=== PATIENT | male | born 1970 | race Caucasian/White ===

== ENCOUNTER 2017-06-05 09:40 | Inpatient (IN) | payer BC, OTHER ==
[~2017-06-05] VITALS: Ht 188 cm; Wt 93.9 kg
[2017-06-05] VITALS (18 sets, daily range): BP systolic 120–161; BP diastolic 88–104
[2017-06-05] MEDS ORDERED: ASPIRIN 81 MG CHEW (CHILDREN'S ASA) ONE (09:41)
[2017-06-05] MEDS ORDERED: RX-NITROGLYCERIN 0.4 MG TAB BTL 25'S SL ONE (09:41)
[2017-06-05] MEDS ORDERED: NS IV 1000 ML 1,000 ML ONE ×2 (09:44→10:28)
[2017-06-05] MEDS ORDERED: CLOPIDOGREL 300 MG (PLAVIX) TABLET PO ONE (09:47)
[2017-06-05] MEDS ORDERED: HEParin 1000 UNIT/ML (10ML VIAL) FOR BOLUS ONE ×2 (09:47→12:40)
[2017-06-05] MEDS ORDERED: HEParin DRIP 25000 UNIT/500ML 500 ML IV SCH (09:54)
[2017-06-05] MEDS ORDERED: NS IV 1000 ML 1,000 ML IV SCH ×2 (10:00→11:45)
[2017-06-05] MEDS ORDERED: ASPIRIN 81 MG CHEW (CHILDREN'S ASA) PO ONE (10:00)
[2017-06-05] MEDS ORDERED: meTOprolol 5 MG/5 ML (LOPRESSOR) VIAL IV ONE (10:00)
[2017-06-05] MEDS ORDERED: RX-NITROGLYCERIN 0.4 MG TAB BTL 25'S SL PRN (10:00)
[2017-06-05 10:06] LABS: BASOPHILS # (AUTO) 0.1 10^3/uL (0.0-0.1); BASOPHILS % (AUTO) 1 % (0-10); EOSINOPHILS # (AUTO) 0.2 10^3/uL (0.0-0.3); EOSINOPHILS % (AUTO) 3 % (0-10); LYMPHOCYTES # (AUTO) 1.7 X 10^3 (1.0-4.0); LYMPHOCYTES % (AUTO) 22 % (12-44); MEAN CORPUSCULAR HEMOGLOBIN 31 PG (25-34); MEAN CORPUSCULAR HGB CONC 36 G/DL (32-36); MEAN CORPUSCULAR VOLUME 87 FL (80-99); MEAN PLATELET VOLUME 10.6 FL (7.4-10.4); MONOCYTES # (AUTO) 0.5 X 10^3 (0.0-1.0); MONOCYTES % (AUTO) 7 % (0-12); NEUTROPHILS # (AUTO) 5.2 X 10^3 (1.8-7.8); NEUTROPHILS % (AUTO) 68 % (42-75); PLATELET COUNT 263 10^3/uL (130-400); RED BLOOD COUNT 5.05 10^6/uL (4.35-5.85); RED CELL DISTRIBUTION WIDTH 13.4 % (10.0-14.5); WHITE BLOOD COUNT 7.7 10^3/uL (4.3-11.0)
[2017-06-05 10:13] LABS: INR 0.9 (0.8-1.4); PROTHROMBIN TIME PATIENT 12.3 SEC (12.2-14.7)
[2017-06-05 10:18] LABS: ALANINE AMINOTRANSFERASE 24 U/L (0-55); ALBUMIN 4.5 GM/DL (3.2-4.5); ANION GAP 11 MMOL/L (5-14); ASPARTATE AMINO TRANSFERASE 30 U/L (5-34); BILIRUBIN,TOTAL 1.3 MG/DL (0.1-1.0); BLOOD UREA NITROGEN 12 MG/DL (7-18); BUN/CREATININE RATIO 12; CALCIUM 10.3 MG/DL (8.5-10.1); CARBON DIOXIDE 26 MMOL/L (21-32); CHLORIDE 99 MMOL/L (98-107); CREATININE SERUM 1.03 MG/DL (0.60-1.30); GFR ESTIMATED > 60; GLUCOSE 195 MG/DL (70-105); MAGNESIUM 1.9 MG/DL (1.8-2.4); POTASSIUM 4.3 MMOL/L (3.6-5.0); SODIUM 136 MMOL/L (135-145)
[2017-06-05 10:24] LABS: MYOGLOBIN SERUM 75.7 NG/ML (10.0-92.0)
[2017-06-05] MEDS ORDERED: HEParin (CATH LAB) 2,000 ML IV ONE (10:28)
[2017-06-05] MEDS ORDERED: LISI-552 PO (10:36)
[2017-06-05] MEDS ORDERED: METF1000 PO (10:36)
--- NOTE | 2017-06-05 10:38 | ED Chest Pain ---
General Stated Complaint: CHEST PAIN Source: patient, family Exam Limitations: no limitations History of Present Illness Time seen by provider: 09:50 Initial Comments This 47-year-old diabetic hypertensive male presents with chest pain that began last night. Patient stated this pressure type chest pain which radiated to both shoulders right greater than left was an 8 on a 10 scale last night. This morning the patient's chest pain persisted and is 3/10. Patient was referred acutely from [facility]. The patient has been compliant on his metformin and lisinopril. Patient has had no history of documented cardiac disease. There is a family history of hypertension, diabetes, and heart disease. The patient drinks moderately. He denies nicotine or recreational drugs. The patient has had no associated diaphoresis or nausea with his chest pain. Allergies and Home Medications Allergies Coded Allergies: No Known Drug Allergies (Unverified , 06/05/17) Review of Systems Constitutional: No chills, No fever EENTM: No Double Vision Respiratory: Denies Cough Cardiovascular: See HPI, Chest Pain Gastrointestinal: Denies Abdominal Pain, Denies Nausea Genitourinary: Denies Burning, Denies Discharge Musculoskeletal: No back pain Skin: No change in color, No rash Psychiatric/Neurological: Denies Anxiety, Denies Depressed Endocrine: Denies Excessive Sweating Hematologic/Lymphatic: No Symptoms Reported Past Qyrqnfr-Nfbdiy-Vzzoeo Hx Reviewed Nursing Assessment Reviewed/Agree w Nursing PMH: Yes Physical Exam Vital Signs Capillary Refill : General Appearance: No Apparent Distress, WD/WN HEENT: Normal ENT Inspection Neck: Normal Inspection Respiratory: Lungs Clear Cardiovascular: Regular Rate, Rhythm, No Edema, No Gallop, No JVD, No Murmur Gastrointestinal: Normal Bowel Sounds Extremity: Normal Capillary Refill, Normal Inspection Neurologic/Psychiatric: Alert, Oriented x3, No Motor/Sensory Deficits, Normal Mood/Affect Skin: Normal Color, Warm/Dry Progress/Results/Core Measures Results/Orders My Orders Orders - MALA KAUFFMAN MD Aspirin Chewable Tablet (Baby Aspirin Ch (06/05/17 09:41) Rx-Nitroglycerin Sl Tabs (Rx-Nitrostat S (06/05/17 09:41) Ns Iv 1000 Ml (Sodium Chloride 0.9%) (06/05/17 09:44) Clopidogrel Tablet (Plavix Tablet) (06/05/17 09:47) Heparin (Bolus Per Protocol) (Heparin (B (7/14/17 09:47) Cbc With Automated Diff (06/05/17 09:54) Magnesium (06/05/17 09:54) Chest 1 View, Ap/Pa Only (06/05/17 09:54) Ekg Tracing (06/05/17 09:54) Cardiac Profile 1 (06/05/17 09:54) Comprehensive Metabolic Panel (06/05/17 09:54) Myoglobin Serum (06/05/17 09:54) Protime With Inr (06/05/17 09:54) Partial Thromboplastin Time (06/05/17 09:54) O2 (06/05/17 09:54) Monitor-Rhythm Ecg Trace Only (06/05/17 09:54) Lipid Panel (06/06/17 06:00) Aspirin Chewable Tablet (Baby Aspirin Ch (06/05/17 10:00) Rx-Nitroglycerin Sl Tabs (Rx-Nitrostat S (06/05/17 10:00) Saline Lock/Iv-Start (06/05/17 09:54) Heparin Injection (Heparin Injection) (06/05/17 10:00) Metoprolol Tartrate Injection (Lopressor (06/05/17 10:00) Initiate/Follow Protocol (06/05/17 ) Heparin Drip 25065 Unit/500ml (Heparin (06/05/17 09:54) Ns Iv 1000 Ml (Sodium Chloride 0.9%) (06/05/17 10:00) Progress Note : Time: 10:05 Progress Note The patient's EKG demonstrated ST segment depression in V1 and V2. The patient was in sinus rhythm. No dysrhythmia was noted. Acute treatment consisted of aspirin orally and sublingual nitroglycerin. The patient's 3/10 chest pain abated with the first nitroglycerin. The patient's repeat EKG demonstrated minimal improvement in the ST segment depression in V1 and V2. Patient had a liter of normal saline established. His laboratory results are pending. Patient received 600 mg of Plavix and 5000 units of heparin as a bolus. Patient was placed on a heparin drip per protocol. Dr. Nunez presented to evaluate the patient. Pt admitted to ICU. Departure Communication Time/Spoke to Admitting Phy: 10:[address] Khalid. Impression Impression: Primary Impression: Chest pain Qualified Codes: I20.9 - Angina pectoris, unspecified Disposition: ADMITTED INPATIENT Condition: Improved Decision to Admit Reason: Admit from ER (General) Decision to Admit/Date: Jun 05, 2017 Time/Decision to Admit Time: 10:40 Departure-Patient Inst. Referrals: [facility] (PCP/Family) Primary Care Physician MALA KAUFFMAN MD Jun 05, 2017 10:38
--- NOTE | 2017-06-05 10:40 | Diagnostic Imaging Report ---
EXAMINATION: Portable upright radiograph of the chest. INDICATION: Chest pain. FINDINGS: The lungs are clear. The heart size is normal. There is no effusion or pneumothorax. The mediastinum and cherrie appear unremarkable. IMPRESSION: Unremarkable exam. Dictated by: Dictated on workstation # [id number]
[2017-06-05] MEDS ORDERED: NITROGLYCERIN SUBLINGUAL 0.4 MG TAB (NITROSTAT) SL PRN (11:45)
[2017-06-05] MEDS ORDERED: CATHETER FLUSH 10 ML SYR IV PRN (11:45)
[2017-06-05] MEDS ORDERED: fentaNYL INJECTION 100 MCG/2 ML AMP ONE (11:51)
[2017-06-05] MEDS ORDERED: MIDAZOLAM 5 MG/5 ML (VERSED) VIAL ONE (11:51)
[2017-06-05] MEDS ORDERED: diphenhydrAMINE 50 MG/ML INJ (BENADRYL) ONE (11:52)
[2017-06-05] MEDS ORDERED: VERAPAMIL 5 MG/2 ML (CALAN) VIAL IV ONE (12:34)
[2017-06-05] MEDS ORDERED: NITROGLYCERIN DRIP 25 MG/D5W 250 ML IV ONE (12:34)
--- NOTE | 2017-06-05 14:04 | Cardiac Procedure Note-CS/ASA ---
Pre-Procedure Note Pre-Op Procedure Note H&P Reviewed The H&P was reviewed, patient examined and no changes noted. Date H&P Reviewed: Jun 05, 2017 Time H&P Reviewed: 13:00 Conscious Sedation Pre-Proced Time Reviewed: 13:00 ASA Class: 3 Airway Mallampati Classification: (seldovia appropriate class) I. II. III, IV Lungs Heart ASA score ASA 1: a normal healthy patient ASA 2: a patient with a mild systemic disease (mid diabetes, controlled hypertension, obesity ASA 3: a patient with a severe systemic disease that limits activity (angina , COPD, prior Myocardial infarction) ASA 4: a patient with an incapacitating disease that is a constant threat to life (CHF, renal failure) ASA 5: a moribund patient not expected to survive 24 hrs. (ruptured aneurysm) ASA 6: a declared brain patient whose organs are being harvested. For emergent operations, add the letter E after the classification Grade 1 Sedation Plan: Analgesia, Amnesia, Plan communicated to team members, Discussed options with patient/fam, Discussed risks with patient/fam Note The patient is an appropriate candidate to undergo the planned procedure, sedation, and anesthesia. The patient immediately re-assessed prior to indication. Karyn AMBRIZ MD Jun 05, 2017 2:04 pm
--- NOTE | 2017-06-05 14:04 | History & Physicial-Cardiolgy ---
HPI-Cardiology Cardiology Consultation: Date of Consultation 06/05/17 Date of Admission Attending Physician Karyn Nunez MD Admitting Physician Aliyah,[facility] Consult[facility] Physician Karyn NUNEZ MD HPI: Time Seen by Provider: 10:00 Chief Complaint: chest pain this is a 47-year-old gentleman with history of diabetes. He presents with chest pain since last night. Chest pain was substernal with no significant radiation. When I saw him in the ER he was not having any chest pain. This was due to one sublingual nitroglycerin that was given. He denies having any other cardiac symptoms including shortness of breath, palpitation, syncope or near syncope. The patient denies smoking. Review of Systems-Cardiology Review of Systems Constitutional: No As described under HPI, No no symptoms reported, No chills, No fever, No lightheadedness, No malaise, No tiredness, No weight loss, No weight gain, No other Eyes: No As described under HPI, No no symptoms reported, No blindness, No blurred vision, No contact lenses, No drainage, No decreased acuity, No foreign body sensation, No glasses, No inflammation, No pain, No photophobia, No previous injury, No shadows, No tunnel vision, No other, No vision change Ears/Nose/Throat: No As described under HPI, No no symptoms reported, No chronic hearing loss, No epistaxis, No ear discharge, No ear pain, No loose teeth, No mouth pain, No mouth swelling, No nasal drainage, No nose pain, No recent hearing loss, No throat pain, No throat swelling, No ulcerations, No other Respiratory: No no symptoms reported, No As described under HPI, No cough, No orthopnea, No shortness of breath, No SOB with excertion, No SOB at rest, No stridor, No wheezing, No other Cardiovascular: No no symptoms reported, No As described under HPI, chest pain , No edema, No irregular heart rate, No lightheadedness, No palpitations, No syncope, No other Gastrointestinal: No no symptoms reported, No As described under HPI, No abdomen distended, No abdominal pain, No blood streaked bowels, No constipation , No diarrhea, No difficulty swallowing, No nausea, No poor appetite, No poor fluid intake, No rectal bleeding, No vomiting, No other, No nausea/vomiting/ diarrhea, No stool coloration changes Genitourinary: No no symptoms reported, No As described under HPI, No burning, No dysuria, No discharge, No frequency, No flank pain, No hematuria, No incontinence, No pain, No urgency, No other, No urine frequency changes, No urine coloration changes Musculoskeletal: No no symptoms reported, No As describe under HPI, No back pain, No gout, No joint pain, No joint swelling, No muscle pain, No muscle stiffness, No neck pain, No other Skin: No no symptoms reported, No As described under HPI, No change in color, No change in hair/nails, No dryness, No lesions, No lumps, No rash, No other, No skin related problems, No ulcerations, No rash on exposed areas, No ulcerations on exposed areas Psychiatric/Neurological: No As described under HPI, No anxiety, No depression , No emotional problems, No focal weakness, No headache, No no symptoms reported , No numbness, No other, No pre-existing deficit, No seizure, No syncope, No tingling, No tremors, No weakness Hematologic: No no symptoms reported, No As described under HPI, No anemia, No blood clots, No easy bleeding, No easy bruising, No swollen glands, No other, No bleeding abnormalities MIW-Oqnewr-Kestng Hx Patient Social History Alcohol Use: Occasionally Uses Recreational Drug Use: No Smoking Status: Never a Smoker 2nd Hand Smoke Exposure: No Recent Foreign Travel: No Recent Infectious Disease Expo: No Hospitalization with Isolation: Denies Physical Abuse Screen: No Sexual Abuse: No Past Medical History PMH As described under Assessment. Family Medical History Family History: Hypertension 19 FATHER G8 BROTHER Allergies and Home Medications Allergies Coded Allergies: No Known Drug Allergies (Unverified , 06/05/17) Home Medications Lisinopril 20 Mg Tablet, 20 MG PO DAILY, (Reported) Metformin HCl 1,000 Mg Tablet, 1,000 MG PO BID, (Reported) Physical Exam-Cardiology Physical Exam Vital Signs/I&O Vital Sign - Last 12Hours 06/05/17 06/05/17 06/05/17 06/05/17 09:40 09:40 09:43 11:00 Temp 98.3 98.3 Pulse 91 70 Resp 18 18 B/P (MAP) 167/116 Pulse Ox 99 100 100 O2 Delivery Nasal Cannula Nasal Cannula Nasal Cannula Nasal Cannula O2 Flow Rate 2.0 2.00 2.00 2.00 06/05/17 11:10 Temp 97.6 Pulse 69 Resp 28 B/P (MAP) 161/92 Pulse Ox 97 O2 Delivery Nasal Cannula O2 Flow Rate 2.00 Capillary Refill : Less Than 3 Seconds Constitutional: No appears stated age, No AAO x 3, No apparent distress, No PERRL, No well-developed, No well-nourished, No other HEENT: No PERRL, No normal ENT inspection, No TMs normal, No pharynx normal, No scleral icterus (R), No scleral icterus (L), No pale conjunctivae (R), No pale conjunctivae (L), No photophobia, No TM abnormal (R), No TM abnormal (L), No pharyngeal erythema, No tonsillar exudate, No other, No discharge, No EOMI, No hearing is well preserved, No hard of hearing, No oral hygience is good, No ulceration, No xanthelasmas are seen Neck: No non-tender, No full range of motion, No supple, No normal inspection, No carotid bruit, No limited range of motion, No lymphadenopathy (R), No lymphadenopathy (L), No tender lateral, No tender midline, No thyromegaly, No other, No carotid pulses are 2 + bilaterally, No with good upstrokes Respiratory: chest expansion is symmetric, chest is bilaterally symmetric, lungs clear to percussion, lungs clear to auscultation Cardiovascular: regular rate-rhythm, No irregularly irregular, No extra beats, No parasternal heave is noted, No JVD, No edema, No bradycardia, No tachycardia , No point of maximal impulse, No cardiac thrills are palpable, S1 and S2, No gallop/S3, No gallop/S4, No diastolic murmur, No systolic murmur, No friction rub, No click, No other Gastrointestinal: No tender, No soft, No round, No distended, No pulsatile mass , No organomegaly, No guarding, No rebound, No tenderness, No hernia, No mass, No audible bowel sounds, No abnormal bowel sounds, No abdominal bruits, No spleenomegaly, No other Rectal: deferred Extremities: No normal range of motion, No non-tender, No normal inspection, No pedal edema, No calf tenderness, No normal capillary refill, No pelvis stable , No calf tenderness, No inflammation, No pedal edema, No slow capillary refill , No swelling, No other, No abrasion, No clubbing, No cyanosis, No ecchymosis, No laceration, No no lower extremity edema bilateral, No significant edema, No tenderness, No wound Neurologic/Psychiatric: No spinneret cleaner II-XII nml as tested, No no motor/sensory deficits, No alert, No normal mood/affect, No oriented x 3, No abnormal cerebellar tests, No abnormal spinneret cleaner II-XII, No abnormal gait, No aphasia, No EOM palsy, No facial droop, No motor weakness, No sensory deficit, No depressed affect, No disoriented x 3, No other, No grossly intact, No power is 5/5 both on sides Skin: No normal color, No warm/dry, No cyanosis, No cool, No diaphoresis, No damp, No ecchymosis, No jaundice, No mottled, No pallor, No rash, No tattoos/ piercings, No ulcerations, No rash on exposed areas, No ulcerations on exposed areas, No other Data Review Labs Laboratory Tests 06/05/17 09:44: White Blood Count 7.7, Red Blood Count 5.05, Hemoglobin 15.7, Hematocrit 44, Mean Corpuscular Volume 87, Mean Corpuscular Hemoglobin 31, Mean Corpuscular Hemoglobin Concent 36, Red Cell Distribution Width 13.4, Platelet Count 263, Mean Platelet Volume 10.6H, Neutrophils (%) (Auto) 68, Lymphocytes (%) (Auto) 22 , Monocytes (%) (Auto) 7, Eosinophils (%) (Auto) 3, Basophils (%) (Auto) 1, Neutrophils # (Auto) 5.2, Lymphocytes # (Auto) 1.7, Monocytes # (Auto) 0.5, Eosinophils # (Auto) 0.2, Basophils # (Auto) 0.1, Prothrombin Time 12.3, INR Comment 0.9, Activated Partial Thromboplast Time 27, Sodium Level 136, Potassium Level 4.3, Chloride Level 99, Carbon Dioxide Level 26, Anion Gap 11, Blood Urea Nitrogen 12, Creatinine 1.03, Estimat Glomerular Filtration Rate > 60 , BUN/Creatinine Ratio 12, Glucose Level 195H, Calcium Level 10.3H, Magnesium Level 1.9, Total Bilirubin 1.3H, Aspartate Amino Transf (AST/SGOT) 30, Alanine Aminotransferase (ALT/SGPT) 24, Alkaline Phosphatase 65, Myoglobin 75.7, Troponin I 0.49*H, Total Protein 8.0, Albumin 4.5 ECG Impression ECG Initial ECG Rhythm: Normal Sinus Comment ST depressions noted in lead V1 and V2 A/P-Cardiology Assessment/Admission Diagnosis non-STEMI Plan coronary angiography is recommended. Bolus aspirin, bolus Plavix, IV heparin. Will require beta azrina, high-dose statin and EMMIE inhibitor. Echocardiogram Clinical Quality Measures AMI/AHF: ASA po Prior to arrival: No DVT/VTE Risk/Contraindication: Risk Factor Score Per Nursin RFS Level Per Nursing on Admit: 1=Low/No VTE PPX Karyn NUNEZ MD Jun 05, 2017 2:04 pm
--- NOTE | 2017-06-05 14:08 | Cardiology Post Procedure Note ---
Post-Procedure Note Physician (s)/Loan Secretary (s) Physician Karyn AMBRIZ MD Pre-Procedure Diagnosis Pre-Procedure Diagnosis: non-STEMI Post-Procedure Note Procedure Start Date: Jun 05, 2017 Procedure Start Time: 13:00 Name of Procedure: coronary angiography, left heart catheterization, PCI with drug-eluting stent to OM1 and mid LAD Findings/Procedure Note subtotal occlusion of OM 1. Severe mid LAD stenosis. Moderate RCA stenosis with moderate to severe PL stenosis. Normal LV function with LVEDP 18 mmHg. PCI with drug-eluting stent to OM1. PCI with drug-eluting stent to mid LAD. fluoroscopy dose 1654 mgy Fluoroscopy time 11.8 minutes Anesthesia Type: Conscious Sedation Estimated blood loss (mL): 20 mL Contrast Amount: 280 Post-Procedure Diagnosis Post-operative diagnosis: PCI to OM1 and LAD Karyn AMBRIZ MD Jun 05, 2017 2:08 pm
[2017-06-05] MEDS ORDERED: PATIENT MAY USE OWN MEDS, ALL PO SCH (14:15)
[2017-06-05] MEDS ORDERED: LISI10TA2 PO (14:52)
[2017-06-05] MEDS ORDERED: METF500T8 PO (14:52)
[2017-06-05] MEDS: NS IV 1000 ML 1,000 ML IV SCH (16:25)
[2017-06-05] MEDS ORDERED: ATORVASTATIN 80 MG (LIPITOR) TABLET PO SCH (21:00)
[2017-06-05] MEDS: meTOprolol TARTRATE 25 MG (LOPRESSOR) TABLET PO SCH (21:39)
[2017-06-06] VITALS (12 sets, daily range): BP systolic 97–127; BP diastolic 66–90
[2017-06-06] MEDS ORDERED: ACETAMINOPHEN 500 MG TAB (TYLENOL) PO ONE ×2 (00:15→00:30)
[2017-06-06] MEDS: NS IV 1000 ML 1,000 ML IV SCH ×2 (00:16→02:45)
[2017-06-06 03:50] LABS: BASOPHILS % (AUTO) 0 % (0-10); EOSINOPHILS # (AUTO) 0.2 10^3/uL (0.0-0.3); EOSINOPHILS % (AUTO) 2 % (0-10); LYMPHOCYTES # (AUTO) 2.1 X 10^3 (1.0-4.0); LYMPHOCYTES % (AUTO) 21 % (12-44); MEAN CORPUSCULAR HEMOGLOBIN 32 PG (25-34); MEAN CORPUSCULAR HGB CONC 35 G/DL (32-36); MEAN CORPUSCULAR VOLUME 90 FL (80-99); MEAN PLATELET VOLUME 10.9 FL (7.4-10.4); MONOCYTES # (AUTO) 0.9 X 10^3 (0.0-1.0); MONOCYTES % (AUTO) 8 % (0-12); NEUTROPHILS # (AUTO) 7.1 X 10^3 (1.8-7.8); NEUTROPHILS % (AUTO) 69 % (42-75); PLATELET COUNT 233 10^3/uL (130-400); RED BLOOD COUNT 4.26 10^6/uL (4.35-5.85); RED CELL DISTRIBUTION WIDTH 13.5 % (10.0-14.5); WHITE BLOOD COUNT 10.3 10^3/uL (4.3-11.0)
[2017-06-06 04:08] LABS: CHOLESTEROL 164 MG/DL (< 200); DIRECT LDL 103 MG/DL (1-129); TRIGLYCERIDES 244 MG/DL (<150); VLDL CHOLESTEROL 49 MG/DL (5-40)
[2017-06-06 04:12] LABS: ALANINE AMINOTRANSFERASE 29 U/L (0-55); ALBUMIN 3.6 GM/DL (3.2-4.5); ANION GAP 9 MMOL/L (5-14); ASPARTATE AMINO TRANSFERASE 111 U/L (5-34); BILIRUBIN,TOTAL 0.9 MG/DL (0.1-1.0); BLOOD UREA NITROGEN 11 MG/DL (7-18); BUN/CREATININE RATIO 12; CALCIUM 8.7 MG/DL (8.5-10.1); CARBON DIOXIDE 23 MMOL/L (21-32); CHLORIDE 104 MMOL/L (98-107); CREATININE SERUM 0.95 MG/DL (0.60-1.30); GFR ESTIMATED > 60; GLUCOSE 206 MG/DL (70-105); MAGNESIUM 1.8 MG/DL (1.8-2.4); POTASSIUM 4.2 MMOL/L (3.6-5.0); SODIUM 136 MMOL/L (135-145); TOTAL PROTEIN 6.4 GM/DL (6.4-8.2)
[2017-06-06 04:23] LABS: TROPONIN I 35.22 NG/ML (<0.30)
[2017-06-06] MEDS ORDERED: MAGNESIUM 1 GM/100 ML IVPB 100 ML IV SCH (06:00)
[2017-06-06] MEDS ORDERED: POTASSIUM CL 10MEQ/50ML IVPB 50 ML IV SCH (06:00)
[2017-06-06] MEDS ORDERED: KCL 20 MEQ TAB (K-DUR) PO SCH (06:00)
[2017-06-06] MEDS: meTOprolol TARTRATE 25 MG (LOPRESSOR) TABLET PO SCH (08:34)
[2017-06-06] MEDS ORDERED: ASPIRIN E.C. 81 MG (ECOTRIN) TAB PO SCH (09:00)
[2017-06-06] MEDS ORDERED: lisINopril 5 MG (PRINIVIL) TABLET PO SCH (09:00)
[2017-06-06] MEDS ORDERED: CLOPIDOGREL 75 MG (PLAVIX) TABLET PO SCH (09:00)
--- NOTE | 2017-06-06 10:21 | Diagnostic Imaging Report ---
INDICATION: Chest pain. TECHNIQUE: Single view chest 5:36 AM. CORRELATION STUDY: 06/05/2017 FINDINGS: Heart size and vasculature are somewhat prominent, likely owing to technique. The lungs are clear with no consolidating infiltrate. There is no significant effusion or pneumothorax. IMPRESSION: 1. Borderline heart size and vasculature may be accentuated by technique. Dictated by: Dictated on workstation # [id number]
[2017-06-06] MEDS ORDERED: ENOXAPARIN 100 MG/1 ML (LOVENOX) SYR SC SCH (11:00)
--- NOTE | 2017-06-06 12:15 | Cardiology Progress Note ---
Cardiology SOAP Progress Note Subjective: No further cardiac symptoms Objective: I&O/Vital Signs Vital Sign - Last 12Hours 06/06/17 06/06/17 06/06/17 06/06/17 01:00 01:00 02:00 03:00 Pulse 71 71 73 68 Resp 17 8 12 B/P (MAP) 105/84 97/70 107/75 Pulse Ox 97 94 97 O2 Delivery Room Air Room Air Room Air 06/06/17 06/06/17 06/06/17 06/06/17 04:00 04:00 04:18 05:00 Temp 97.0 Pulse 63 63 Resp 8 18 B/P (MAP) 107/66 107/81 Pulse Ox 9 98 97 O2 Delivery Room Air Room Air Room Air 06/06/17 06/06/17 06/06/17 06/06/17 06:00 07:00 07:00 08:00 Temp 97.4 Pulse 70 75 75 Resp 10 B/P (MAP) 107/82 118/89 Pulse Ox 98 99 O2 Delivery Room Air Room Air 06/06/17 06/06/17 06/06/17 06/06/17 08:00 08:00 09:00 10:00 Pulse 76 76 75 Resp 12 9 20 B/P (MAP) 127/89 117/82 126/88 Pulse Ox 98 99 98 98 O2 Delivery Room Air Room Air Room Air Room Air 06/06/17 11:00 Pulse 79 Resp 14 B/P (MAP) 126/73 Pulse Ox 97 O2 Delivery Room Air Intake and Output 06/06/17 00:00 Intake Total 200 ml Output Total 1000 ml Balance -800 ml Weight (Pounds): 207 Weight (Ounces): 0.0 Weight (Calculated Kilograms): 93.347016 Side: right Groin site without hematoma: Yes Constitutional: No appears stated age, No AAO x 3, No apparent distress, No PERRL, No well-developed, No well-nourished, No other Respiratory: chest expansion is symmetric, chest is bilaterally symmetric, lungs clear to percussion, lungs clear to auscultation Cardiovascular: regular rate-rhythm, No irregularly irregular, No extra beats, No parasternal heave is noted, No JVD, No edema, No bradycardia, No tachycardia , No point of maximal impulse, No cardiac thrills are palpable, S1 and S2, No gallop/S3, No gallop/S4, No diastolic murmur, No systolic murmur, No friction rub, No click, No other Gastrointestional: No tender, No soft, No round, No distended, No pulsatile mass, No organomegaly, No guarding, No rebound, No tenderness, No hernia, No mass, No audible bowel sounds, No abnormal bowel sounds, No abdominal bruits, No spleenomegaly, No other Extremities: No normal range of motion, No non-tender, No normal inspection, No pedal edema, No calf tenderness, No normal capillary refill, No pelvis stable , No calf tenderness, No inflammation, No pedal edema, No slow capillary refill , No swelling, No other, No abrasion, No clubbing, No cyanosis, No ecchymosis, No laceration, No no lower extremity edema bilateral, No significant edema, No tenderness, No wound Neurologic/Psychiatric: No air commodore II-XII nml as tested, No no motor/sensory deficits, No alert, No normal mood/affect, No oriented x 3, No abnormal cerebellar tests, No abnormal air commodore II-XII, No abnormal gait, No aphasia, No EOM palsy, No facial droop, No motor weakness, No sensory deficit, No depressed affect, No disoriented x 3, No other, No grossly intact, No power is 5/5 both on sides Skin: No normal color, No warm/dry, No cyanosis, No cool, No diaphoresis, No damp, No ecchymosis, No jaundice, No mottled, No pallor, No rash, No tattoos/ piercings, No ulcerations, No rash on exposed areas, No ulcerations on exposed areas, No other Results/Procedures: Labs Laboratory Tests 06/05/17 15:45: Troponin I 12.82*H 06/05/17 21:50: Troponin I 32.55*H 06/06/17 03:38: Troponin I 35.22*H, White Blood Count 10.3, Red Blood Count 4.26L, Hemoglobin 13.4, Hematocrit 38L, Mean Corpuscular Volume 90, Mean Corpuscular Hemoglobin 32 , Mean Corpuscular Hemoglobin Concent 35, Red Cell Distribution Width 13.5, Platelet Count 233, Mean Platelet Volume 10.9H, Neutrophils (%) (Auto) 69, Lymphocytes (%) (Auto) 21, Monocytes (%) (Auto) 8, Eosinophils (%) (Auto) 2, Basophils (%) (Auto) 0, Neutrophils # (Auto) 7.1, Lymphocytes # (Auto) 2.1, Monocytes # (Auto) 0.9, Eosinophils # (Auto) 0.2, Basophils # (Auto) 0.0, Sodium Level 136, Potassium Level 4.2, Chloride Level 104, Carbon Dioxide Level 23, Anion Gap 9, Blood Urea Nitrogen 11, Creatinine 0.95, Estimat Glomerular Filtration Rate > 60, BUN/Creatinine Ratio 12, Glucose Level 206H, Calcium Level 8.7, Phosphorus Level 3.0, Magnesium Level 1.8, Total Bilirubin 0.9, Aspartate Amino Transf (AST/SGOT) 111H, Alanine Aminotransferase (ALT/SGPT) 29, Alkaline Phosphatase 55, Total Protein 6.4, Albumin 3.6, Triglycerides Level 244H, Cholesterol Level 164, LDL Cholesterol Direct 103, VLDL Cholesterol 49H, HDL Cholesterol 33L 06/06/17 11:50: A/P: Assessment/Dx: non-STEMI Plan: Coronary angiography showed subtotal stenosis in the OM treated with drug- eluting stent. Severe mid LAD stenosis treated with drug-eluting stent. Aspirin, Plavix, statin, lisinopril, beta zarina. Echocardiogram showed normal LV function with inferior lateral hypokinesis. We will draw another troponin at 12 noon if trending down, patient may be able to go home. Thank you for your consultation. Please call me if you have any questions. Sonal Nunez MD, FACP, FACC, FSCAI, FHRS, CCDS Interventional Cardiology Cardiac Electrophysiology Vascular Medicine and Endovascular Interventions Clinical Quality Measures AMI/AHF: ASA po Prior to arrival: Karyn Rick MD Jun 06, 2017 12:15 pm
[2017-06-06] MEDS ORDERED: ASPI-983 PO (12:22)
[2017-06-06] MEDS ORDERED: CLOP75TA28 PO (12:22)
[2017-06-06] MEDS ORDERED: METO-333 PO (12:22)
[2017-06-06] MEDS ORDERED: NITR0.4T SL (12:22)
[2017-06-06] MEDS ORDERED: ATOR80TA76 PO (12:22)
--- NOTE | 2017-06-06 12:23 | Discharge Inst-Post CATH ---
Discharge Inst-CATH Post Cardiac Cath D/C Inst Follow Up/Plan Follow-up with Dr. Nunez in one to 2 weeks CARDIAC CATH DISCHARGE INSTRUCTIONS *Hold Metformin for 48 hours post heart cath. ACTIVITY * Go Home directly and rest. * Limit activity of the leg (or wrist if it was used) for 7 days including aerobics, swimming, jogging, bicycling, etc. * Restrict stair-climbing for 7 days if possible, if not, climb up with your non -cath leg, then bring together on the same step. * Avoid lifting, pushing, pulling or excessive movement of the affected extremity for 7 days. * Customary sexual activity may be resumed after 2 days-use caution not to use a position that strains or causes pain to the affected extremity. * No driving for 24 hours. * NO SMOKING. * Avoid straining for bowel movements for 7 days. * Gentle walking on level ground is allowed. * Returning to work will depend on the type of procedure and the results. Your doctor will discuss this with you. CALL YOUR DOCTOR FOR ANY OF THE FOLLOWING: *If bleeding from the puncture site occurs- Apply gentle pressure to site with clean cloth and call your doctor or EMS. * If a knot or lump forms under the skin, increases in size, or causes pain. * If bruising appears to be worsening or moving further down your leg instead of disappearing. * Temperature above 101 F. CARE OF YOUR GROIN INCISION; * Bruising or purple discoloration of the skin near the puncture site is common. * You may shower only, no bathtub bathing for 5 days. Be careful to avoid slipping as your leg may feel stiff. * If a closure device was used on your femoral artery, please see the attached guide regarding care of the device and your leg. * REMOVE the dressing from your groin the next day after your procedure in the shower. CARE OF YOUR WRIST INCISION; * Bruising or purple discoloration of the skin near the puncture site is common. * You may shower. * DO NOT submerge wrist. * Remove dressing in 24 hours. Karyn NUNEZ MD Jun 06, 2017 12:23 pm
--- NOTE | 2017-06-06 12:25 | Cardiology Discharge Summary ---
Diagnosis/Chief Complaint Date of Admission Jun 05, 2017 at 10:34 Date of Discharge 06/06/2017 Admission Diagnosis Non-STEMI Final/Discharge Diagnosis Non-STEMI, status post PCI with drug-eluting stent to OM and LAD Chief Complaint/HPI Chief Complaint/HPI this is a 47-year-old gentleman with history of diabetes. He presents with chest pain since last night. Chest pain was substernal with no significant radiation. When I saw him in the ER he was not having any chest pain. This was due to one sublingual nitroglycerin that was given. He denies having any other cardiac symptoms including shortness of breath, palpitation, syncope or near syncope. The patient denies smoking. Discharge Summary Procedures PCI with drug-eluting stent to OM1 and mid LAD Discharge Physical Examination Normal cardiovascular and respiratory exam. Normal right groin. Stable Hospital Course Stable no further chest discomfort. Pending Labs Laboratory Tests 06/06/17 11:50: Troponin I 21.53 Discussion & Recommendations Discussion All discharge instructions given to the patient and significant other. Discharge instructions were discussed in detail. Discharge took over 30 minutes to complete. Follow up appt.: Dr. Nunez in one to 2 weeks Dicharge Diet: Cardiac Diet Activity as Tolerated: Yes Home Medications Reviewed patient Home Medication Reconciliation Form Discharge Home Medications: Reviewed and agree with Discharge Medication list on patient's Discharge Instruction sheet Condition at discharge Stable Instructions to patient/family Follow-up with Dr. Nunez in one to 2 weeks Clinical Quality Measures AMI/AHF: ASA po Prior to arrival: No DVT/VTE Risk/Contraindication: Risk Factor Score Per Nursin RFS Level Per Nursing on Admit: 1=Low/No VTE PPX Karyn NUNEZ MD Jun 06, 2017 12:25
--- NOTE | 2017-06-08 11:27 | CARDIAC CATHETERIZATION ---
PROCEDURE PHYSICIAN: YUE AMBRIZ DATE OF PROCEDURE: 06/05/2017 PCI report INDICATION: Non-STEMI PREOPERATIVE DIAGNOSIS: Non-STEMI POSTOPERATIVE DIAGNOSIS: Non-STEMI, status post PCI with drug eluting stent to first obtuse marginal artery and mid LAD. HISTORY: Mr. Valdivia is a 47-year-old gentleman who presented with prolonged episode of chest pain. EKG showed ST depression in leads V1 and V2. He was still having continuous chest pain and his first troponin was positive. He was taken urgently to the Import Coordinator. He was given a bolus of aspirin, Plavix and IV heparin in the ER. PROCEDURE PERFORMED: 1. Left heart catheterization. 2. Coronary angiography. 3. PCI to the first obtuse marginal artery with drug-eluting stent. 4. PCI to the mid LAD with drug eluting stent. COMPLICATIONS: None. SPECIMEN: None. ESTIMATED BLOOD LOSS: 30 mL. Anticoagulation: IV heparin. Contrast dose: 280 mL of Omnipaque. Fluoroscopy time: 11.8 minutes. Fluoroscopy dose: 1,654 PROCEDURE DETAILS: The patient was brought to the Import Coordinator after informed consent was taken. All the risks and complications were explained in detail. The patient was draped and prepped in the usual sterile fashion. Access was gained in the right femoral artery with a 6-Romanian sheath. Left heart catheterization and cannulation of the RCA was performed with a JR4 catheter. Left coronary system was engaged with a JL4 catheter. FINDINGS: 1. Left heart catheterization: LV pressure 151/13 mmHg, LVEDP 18 mmHg, aortic pressure 141-85 mmHg. Normal LV systolic function with apical hypokinesis. There was no gradient across the aortic valve. 2. RCA: The RCA is a dominant artery with moderate disease (50%) in the proximal segment. There is a long disease, moderately diseased segment in the mid RCA which is 40 to 50% stenosed. The posterior lateral branch has an 80% stenosis in the proximal segment. 3. LEFT MAIN: The left main is short vessel with no significant disease. 4. Left circumflex artery: The proximal section of the left circumflex artery does not have significant disease. There is subtotal occlusion of the first obtuse marginal artery, which reconstitutes and then divides into three branches. The AV groove artery does not have any significant disease. 5. LAD: There is mild proximal LAD disease with 20 to 30% stenosis. The mid LAD has severe long disease segment of around 70%; however, there is a focal 90% stenosis in the mid LAD. The LAD is a transapical vessel. RECOMMENDATION: 1. PCI to the OM1 is recommended. 2. PCI to mid LAD is recommended. PCI details: We used an EBU 3.5 guide catheter. Whisper wire was used as a guidewire. IV heparin was used for anticoagulation. ACT was over 200 seconds. We crossed the lesion in the obtuse marginal artery with a Whisper wire. We then took a 2.0 x 15 balloon and performed a gentle inflation in the disease segment at 6 atmospheres for 32 seconds. This balloon inflation resulted in recanalization of the obtuse marginal artery. We then took a 2.25 x 18 Xience Alpine stent and placed it in the proximal segment of the obtuse marginal artery and deployed it at 12 atmospheres for 80 seconds. We then took a 2.75 x 12 NC Quantum balloon and performed post dilatation at 18 atmospheres in the proximal and mid segment of the stent. Both results showed satisfactory results. There was no residual stenosis with KAYLEE 3 flow. The initial KAYLEE flow was 1. The stent was likely a little oversized for the vessel however, there was no distal dissection or vascular complication. Therefore the wire was taken out and post angiographic result was good. We then took the same wire and crossed the lesion in the LAD. The lesion was direct stented with a Xience Alpine 2.5 x 33 stent with excellent results. We used the same NC Quantum balloon and performed post dilatation in the mid and proximal segments of the stent. There was no residual stenosis with KAYLEE 3 flow. The wire was taken out and there was no vascular complication. The patient tolerated the procedure well. IMPRESSION/CONCLUSION: 1. Non-STEMI with culprit vessel was an obtuse marginal artery, which was treated with a drug eluting stent. 2. Severe disease in the mid LAD was treated with a drug eluting stent. 3. The patient will continue dual antiplatelet therapy for at least a year. The patient will continue on beta zarina, statin EMMIE inhibitor. 4. Echocardiogram will be performed. Job ID: [id number] Dictated Date: 06/07/2017 15:43:14 Wafer Fabrication Technician Date: 06/08/2017 11:04:18 / cathy ESCUDERO
== END 2017-06-06 13:20 | disposition home or self-care (01) | DRG 247 ==
LOC: EDUNIT# 09:40 → ER 09:43 → ICU 10:34 → ENPENDDIS 06-06 13:00
PROVIDERS: ADMIT Internal Medicine Interventional Cardiology; ATTEND Internal Medicine Interventional Cardiology
PROC: 027135Z Dilation of Coronary Artery, Two Arteries with Two Drug-eluting Intraluminal Devices, Percutaneous Approach (ICD-10-PCS; principal; 2017-06-05)
PROC: 4A023N7 Measurement of Cardiac Sampling and Pressure, Left Heart, Percutaneous Approach (ICD-10-PCS; 2017-06-05)
PROC: B2111ZZ Fluoroscopy of Multiple Coronary Arteries using Low Osmolar Contrast (ICD-10-PCS; 2017-06-05)
PROC: B2151ZZ Fluoroscopy of Left Heart using Low Osmolar Contrast (ICD-10-PCS; 2017-06-05)
DX: I21.4 Non-ST elevation (NSTEMI) myocardial infarction (principal); I25.10 Atherosclerotic heart disease of native coronary artery without angina pectoris; E11.9 Type 2 diabetes mellitus without complications; I10 Essential (primary) hypertension; Z79.84 Long term (current) use of oral hypoglycemic drugs
CPT/HCPCS: 36415; 71010; 80053; 80061; 83735; 83874; 84100; 84484; 85025; 85347; 85610; 85730; 87081; 93005; 93041; 93306; 93458

== ENCOUNTER → 2018-06-23 | Outpatient (CLI) | payer BC ==
[~2018-06-23] MED LIST: ASPI-983 PO; ATOR80TA76 PO; CATHETER FLUSH 10 ML SYR IV PRN; CLOP75TA28 PO; LISI-552 PO; LISI10TA2 PO; METF10002 PO; METF500T8 PO; METO-333 PO; NITR0.4T SL
[2018-06-23 12:59] VITALS: BP 138/91
[2018-06-23 13:12] VITALS: BP 175/95
--- NOTE | 2018-06-23 18:35 | STRESS TEST ---
DATE OF SERVICE: 06/23/2018 EXERCISE MYOVIEW STRESS TEST REPORT REFERRING PHYSICIAN: [facility]. Baseline heart rate is 66. Baseline blood pressure 133/96. Baseline EKG is sinus rhythm with no ischemic changes. SUMMARY: The patient was injected with 10.96 mCi of technetium-99 Myoview and the resting images were obtained. Then, the patient started exercising with a baseline heart rate, blood pressure and EKG mentioned above. With peak stress level, the patient was injected with 29.6 mCi of technetium-99 Myoview. He was able to exercise for a total of 7 minutes 40 seconds on standard Kenrick protocol achieving maximum heart rate of 147, which is 85% of maximum expected heart rate. With peak exercise level, EKG was showing [address] depression in V4, V5. Blood pressure was 170/104. During recovery, heart rate and blood pressure returned to baseline. EKG returned to baseline. The resting and stress images were reviewed and compared in the short axis, horizontal long axis, and vertical long axis views. Review of the images showed good radiotracer uptake, mild decreased uptake at the basal to mid inferolateral and anterolateral wall, which is fixed with no significant ischemia. SSS is 8, SDS 0, TID value 1.0. On the gated images, the left ventricle appeared to be in normal size with normal contractility. Calculated ejection fraction 52%. CONCLUSION: 1. The patient was able to exercise for 7 minutes 40 seconds on standard Kenrick protocol achieving 85% of maximum expected heart rate, total of 9.3 METS. 2. Hypertensive response to exercise, returned to baseline during recovery. 3. Minimal nondiagnostic EKG changes with exercise returned to baseline during recovery. 4. Fixed defect at the basal to mid anterolateral and inferolateral wall with no significant ischemia could be due to extracardiac attenuation. 5. Normal left ventricular size with normal contractility. Calculated ejection fraction 52%. Job ID: [id number] DocumentID: [id number] Dictated Date: 06/23/2018 15:47:39 Programming Director Date: 06/23/2018 18:34:46 Dictated By: LAURA BARRY MD
== END ==
LOC: CARD 09:33
PROVIDERS: ATTEND Internal Medicine Cardiovascular Disease
DX: I10 Essential (primary) hypertension (principal); I25.10 Atherosclerotic heart disease of native coronary artery without angina pectoris; E78.5 Hyperlipidemia, unspecified; E11.9 Type 2 diabetes mellitus without complications; I07.1 Rheumatic tricuspid insufficiency
CPT/HCPCS: 78452; 93017; 93306

== ENCOUNTER 2021-05-10 13:00 | Outpatient (RCR) | payer OTHER ==
[~2021-05-10 13:00] MED LIST changes: +ASPI-1238 PO; -ASPI-983 PO; -CATHETER FLUSH 10 ML SYR IV PRN; -LISI-552 PO; -LISI10TA2 PO; +LISI10TA25 PO; +LISI20TA26 PO; +METF-399 PO; +METF-865 PO; -METF10002 PO; -METF500T8 PO
== END 2021-08-08 | disposition home or self-care (01) ==
LOC: CARD 13:00
PROVIDERS: ATTEND Internal Medicine Cardiovascular Disease
DX: I10 Essential (primary) hypertension (principal); I25.10 Atherosclerotic heart disease of native coronary artery without angina pectoris; I49.9 Cardiac arrhythmia, unspecified
CPT/HCPCS: 93225; 93226; 93306

== ENCOUNTER → 2021-07-08 | Outpatient (CLI) | payer OTHER ==
[~2021-07-08] MED LIST changes: +CATHETER FLUSH 10 ML SYR IV PRN
[2021-07-08 09:22] VITALS: BP 126/77
--- NOTE | 2021-07-08 11:23 | Cardiology Stress Test Report ---
Stress Test Report Date of Procedure/Referring: Date of Procedure: Jul 08, 2021 PCP Laura Brown MD Admitting Physician [place] [place] Indications: HTN Baseline Heart Rate: 57 Baseline Blood Pressure: Blood Pressure Systolic: 126 Blood Pressure Diastolic: 77 Vital Signs Date Time Temp Pulse Resp B/P (MAP) Pulse Ox O2 Delivery O2 Flow Rate FiO2 07/08/21 09:22 57 126/77 (93) Baseline Vital Signs Vital Signs Date Time Temp Pulse Resp B/P (MAP) Pulse Ox O2 Delivery O2 Flow Rate FiO2 07/08/21 09:22 57 126/77 (93) Baseline EKG: Baseline EKG: NSR Summary: After explaining the procedure and details to the patient, he signed the consent and was brought to the stress nuclear laboratory. Patient exercised on standard Kenrick protocol, EKG, heart rate and blood pressure were monitored continuously, resting and stress doses of radio tracer were injected, imaging was acquired and reviewed in the short axis, horizontal long axis and vertical long axis views Patient was able to exercise for a total of 9.30 minutes on Kenrick protocol, METs 10.3 Maximum heart rate 141 Maximum blood pressure 146/68 Stress EKG, Minimal nondiagnostic changes Recovery EKG, Return to baseline TID: 1.07 SSS: 6 SDS: 0 EF: 57 Conclusion: 1. Good exercise tolerance for 9 minutes 30 seconds on standard Kenrick protocol, 10.3 METS achieving 83% of maximal expected heart rate 2. Frequent PVCs noted during exercise and resolved during recovery 3. Nondiagnostic EKG changes with exercise return to baseline during recovery 4. Mild decrease uptake involving the basal to mid anterolateral and inferolateral wall with no significant reversibility or ischemia 5. Normal left ventricular size, EF 57% LAURA BROWN MD Jul 08, 2021 11:23
== END ==
LOC: CARD 08:00
PROVIDERS: ATTEND Internal Medicine Cardiovascular Disease
DX: I10 Essential (primary) hypertension (principal); I25.10 Atherosclerotic heart disease of native coronary artery without angina pectoris; I49.9 Cardiac arrhythmia, unspecified
CPT/HCPCS: 78452; 93017; A9502